=== PATIENT | male | born 1985 | race African-American/Black ===

== ENCOUNTER 2022-03-12 02:22 | Emergency (ER) | payer MEDICAID ==
[~2022-03-12] VITALS: Ht 188 cm; Wt 147.2 kg
[2022-03-12 05:40] VITALS: BP 135/79
[2022-03-12 06:10] LABS: CLARITY URINE CLEAR (CLEAR); COLOR URINE YELLOW (YELLOW); KETONES URINE TRACE (NEGATIVE); LEUKOCYTE ESTERASE URINE NEGATIVE (NEGATIVE); NITRITE URINE NEGATIVE (NEGATIVE); OCCULT BLOOD URINE NEGATIVE (NEGATIVE); PH URINE 6.5 (4.5-8.0); PROTEIN URINE 1+ (NEGATIVE); SPECIFIC GRAVITY URINE 1.028 (1.005-1.030)
[2022-03-12] MEDS ORDERED: CEFTRIAXONE SODIUM 500 MG/VIAL IM ONE (06:15)
[2022-03-12] MEDS ORDERED: KETOROLAC 60MG/2ML VIAL IM ONE (06:15)
[2022-03-12] MEDS ORDERED: AZITHROMYCIN 500 MG TABLET PO ONE (06:15)
[2022-03-12] MEDS ORDERED: IBUP-2028 MT (06:55)
== END 2022-03-12 07:06 | disposition home or self-care (01) ==
LOC: ER 02:22
DX: M17.11 Unilateral primary osteoarthritis, right knee (principal); N34.2 Other urethritis; F14.10 Cocaine abuse, uncomplicated
CPT/HCPCS: 73562; 81003; 87491; 87591; 96372; 99284; J0696; J1885